=== PATIENT | female | born 1970 | race Hispanic/Latino ===

== ENCOUNTER 2018-01-18 15:13 | Outpatient (CLI) | payer BC ==
--- NOTE | 2018-01-23 16:23 | MMO ---
BILATERAL DIGITAL SCREENING MAMMOGRAMS: Date: 01/18/18 This patient's mammogram was interpreted with the assistance of computer-aided detection. Comparison made with exam of 03/25/16. FINDINGS: There are scattered fibroglandular densities. There is a questionable nodule in the right upper inner breast. IMPRESSION: BIRADS 0: Incomplete: Need Additional Imaging Evaluation and/or Prior Mammograms for Comparison Recommend diagnostic right mammogram and right breast ultrasound. The facility will notify patient of need for additional imaging services. POS: [facility]
== END 2018-01-18 15:14 | disposition home or self-care (01) ==
LOC: SCSMAMMO 15:13
PROVIDERS: ATTEND Family Medicine
DX: Z12.31 Encounter for screening mammogram for malignant neoplasm of breast (principal); Z78.0 Asymptomatic menopausal state; I50.9 Heart failure, unspecified
CPT/HCPCS: 77067